=== PATIENT | female | born 1975 | race Caucasian/White ===

== ENCOUNTER 2016-06-23 22:49 | Emergency (ER) | payer MEDICARE, MEDICAID ==
[~2016-06-23] VITALS: Ht 160 cm; Wt 56.4 kg
[2016-06-23] MEDS: 0.9% Sodium Chloride 1,000 ML IV ONE (00:05)
[~2016-06-23 22:49] MED LIST: CRB200TCR PO; DIAZ5TAB PO; DIAZ5TAB3 PO; FENT1PAT11 TRANSDERM; HYDR2TAB27 PO; OXYC-474 PO; PROC-4 PO; ProAirHFA IH; SUCR1TAB; THYR97.5 PO
[2016-06-23 23:01] VITALS: PULSE 65; RESP 18; O2SAT 99
[2016-06-23 23:16] VITALS: BP 122/68
--- NOTE | 2016-06-23 23:28 | ED.REPORT ---
HPI-Abd Pain F Under 40 Date of Service Jun 23, 2016 ED Provider: Domingo Lara DO A 41 year old female with a history of abdominal issues including gastric ulcer disease, ruptured ulcer, small bowel obstructions, inoperable hernia, and GI bleed presents to the ED complaining of abdominal pain, nausea, and vomiting. The pt was bathing at approximately 16:00 today when the symptoms began. The pt suspects that the action of bathing triggered the flare because even small amounts of activity lead to breakthrough pain. Flares and breakthrough pain are a fairly regular occurrence for the pt. She takes pain medications daily at home and uses hydromorphone for breakthrough pain. However she states that this feels different than her usual symptoms. Per pt's significant other, the pt just began gaining weight less than a month ago. The pt had a bowel perforation in 01/2016 and an ulcer in 03/2016. Nursing Notes Stated Complaint: VOMITING Chief Complaint: Female Abdominal Pain Nursing Notes Reviewed: Yes Allergies: Coded Allergies: Haloperidol Lactate (Verified Allergy, Severe, 06/23/16) NSAIDS (Non-Steroidal Anti-Inflamma (Verified Allergy, Severe, 06/23/16) Tetanus Vaccines and Toxoid (Verified Allergy, Severe, epilepsy, 06/23/16) codeine (Verified Allergy, Severe, GIVEN HYDROMORPHONE XMANY, 06/23/16) divalproex sodium (Verified Allergy, Severe, 06/23/16) doxepin (Verified Allergy, Severe, Epilepsy, 06/23/16) haloperidol (Verified Allergy, Severe, 06/23/16) ketamine (Verified Allergy, Severe, Seizures, 06/23/16) phenobarbital (Verified Allergy, Severe, 06/23/16) phenytoin sodium (Verified Allergy, Severe, 06/23/16) Uncoded Allergies: PPI (Allergy, Severe, Shaky, seizures, 03/04/16) SSRI (Allergy, Intermediate, Aggrevates epilepsy, 03/04/16) Scheduled Carbamazepine-Expunged Drug, Do Not Renew! (Carbamazepine XR-Expunged Drug, Do Not Renew!) 200 Mg Tablet 400 MG PO BID DO NOT CRUSH OR CHEW Diazepam (Diazepam) 5 Mg Tablet 5 MG PO DIRECTED Diazepam-Expunged Drug, Do Not Renew! (Diazepam-Expunged Drug, Do Not Renew!) 5 Mg Tablet 5 MG PO TIDP Fentanyl 100 mcg/hr Patch (Fentanyl 100 mcg/hr Patch) 1 Each Patch.td72 25 MCG TRANSDERM Q3D Scheduled PRN Hydromorphone (Dilaudid) 2 Mg Tablet 4 MG PO QID PRN PRN Pain Oxycodone (Roxicodone) 5 Mg Tablet 10 MG PO Q4H PRN PRN For Pain Prochlorperazine Maleate (Compazine) 10 Mg Tablet 10 MG PO Q8 hours PRN PRN For Nausea Miscellaneous Medications Albuterol-Expunged Drug, Do Not Renew! (ProAir HFA-Expunged Drug, Do Not Renew! ) 200 Puff/8.5 Gm Hfa.aer.ad 8.5 GM IH Sucralfate (Sucralfate) 1 Gm Tablet Thyroid,Pork (Nature-Throid) 97.5 Mg Tablet 97.5 MG PO General Time Seen by MD: 23:28 Chief Complaint Abdominal pain Hx Obtained From: Patient, Spouse Arrived By: Walk-in Sudden in Onset?: No Onset Occurred: 5 - 8 hours ago Symptom Duration: Since onset Recent Healthcare: Recent doctor visit, Recent hospitalization Similar Sx Previous: Yes Past Medical History Past Medical History Notes: Followed by Dr. Willis @ [facility] Past Medical History seizure disorder hypothryoidism gastric ulcer disease multiple GI bleeds, history of ruptured ulcer small bowel obstructions chronic abdominal pain per significant other: inoperable hernia, remant stomach post bariatric surgery, dilated biliary system Past Surgical History - Emergency laparotomy on 02/09/16 - Kayli-en-Y jejunostomy gastric by-pass (Dr. Vazquez at [facility] in 2006) - hiatal hernia repair in 2006 - lysis of abdominal lesions in 2014 ( [facility]) Smoking History Unknown if Ever Smoker Social History Other Social History: Good social support, Local resident Ambulatory Status Independent Review of Systems Constitutional: Denies: Fever Respiratory: Denies: Non-productive cough Cardiovascular: Denies: Chest pain GI: Reports: Abdominal pain, Nausea, Vomiting Musculoskeletal: Denies: Back pain Complete sys rev & neg: except as marked. Physical Exam Initial Vital Signs Vital Signs (First) Date Time Temp Pulse Resp B/P Pulse Ox O2 Delivery O2 Flow Rate FiO2 06/23/16 23:01 37.1 65 18 99 Room Air 06/23/16 23:16 122/68 Initial VS: Reviewed General/Constitutional: Awake, Alert Behavior: Positive: Tearful mild distress due to pain Respiratory / Chest: Atraumatic, Breath sounds NL, Breath sounds = bilat, No respiratory distress Cardiovascular: Heart rate NL, Regular rhythm, Heart sounds NL Abdomen: Atraumatic, Soft epigastric tenderness Back: Atraumatic, Full range of motion Head / Eyes: Atraumatic, Normocephalic, PERRL, EOMI ENT: Atraumatic, Airway patent, Mucous membranes moist Skin: Atraumatic, Color NL, No rash, Warm, Dry Neurologic: Oriented X3, Speech NL, No motor deficits, No sensory deficits Neck: Atraumatic, Supple, Full range of motion Upper Extremity / MS: Atraumatic, Full range of motion Lower Extremity / Pelvis / MS: Atraumatic, Full range of motion, No edema Psychiatric: Affect NL, Mood NL Interpretation & Diagnostics Lab Results Interpretation Result Diagram: 06/23/16 2336 06/23/16 2336 Test 06/23/16 23:36 06/24/16 01:57 06/24/16 02:45 White Blood Count 9.4th/mm3 (3.8-10.1) Red Blood Count 4.17mil/mm3 (3.90-5.20) Hemoglobin 13.2g/dL (12.0-15.6) Hematocrit 37.0% (35.0-46.0) Mean Corpuscular Volume 88.7fL (81-100) Mean Corpuscular Hemoglobin 31.7pg (27.0-35.0) Mean Corpuscular Hemoglobin Concent 35.7% (32.0-37.0) Red Cell Distribution Width 12.8% (12.3-15.4) Platelet Count 335bil/L (150-400) Neutrophils (%) (Auto) 86.9% (40-74) Lymphocytes (%) (Auto) 7.4% (14-46) Monocytes (%) (Auto) 5.4% (4-12) Eosinophils (%) (Auto) 0% (0-5) Basophils (%) (Auto) 0.1% (0-3) Hold Purple Top Tube Received (Received) Prothrombin Time 11.0sec (8.1-12.5) Prothromb Time International Ratio 1.03ratio Hold Blue Top Tube Received (Received) Sodium Level 124mEq/L (134-144) Potassium Level 4.3mEq/L (3.5-5.2) Chloride Level 85mEq/L (97-108) Carbon Dioxide Level 25mmol/L (18-29) Blood Urea Nitrogen 13mg/dL (6-24) Creatinine 0.53mg/dL (0.57-1.00) Estimat Glomerular Filtration Rate 181mL/min (>59) Glucose Level 130mg/dL (60-99) Lactic Acid Level 2.0mmol/L (0.4-2.0) Calcium Level 9.3mg/dL (8.5-10.1) Magnesium Level 1.8mg/dL (1.6-2.6) Total Bilirubin 0.2mg/dL (0.0-1.2) Aspartate Amino Transf (AST/SGOT) 14U/L (0-50) Alanine Aminotransferase (ALT/SGPT) 7U/L (0-32) Alkaline Phosphatase 93U/L (25-150) Total Protein 7.1g/dL (6.4-8.4) Albumin 4.6g/dL (3.4-5.0) Lipase 19U/L (13-60) Hold Red Top Tube Received (Received) Hold [place] Top Tube Received (Received) Hold [place] Top Tube Received (Received) Carbamazepine (Tegretol) Level 9.1ug/mL (4.0-12.0) Urine Color Yellow (YELLOW) Urine Appearance Hazy (CLEAR,HAZY) Urine pH 7.5 (5.0-8.0) Urine Specific [place] 1.010 (1.003-1.035) Urine Protein Negativemg/dL (NEG,TRACE) Urine Glucose (UA) Negativemg/dL (NEGATIVE) Urine Ketones Negativemg/dL (NEGATIVE) Urine Occult Blood Moderate (NEGATIVE) Urine Nitrite Negative (NEGATIVE) Urine Bilirubin Negative (NEGATIVE) Urine Urobilinogen Normalmg/dL (NORMAL) Urine Leukocyte Esterase Negative (NEGATIVE) Urine RBC 3-10/hpf (0-2) Urine WBC 0-5/hpf (0-5) Urine Epithelial Cells Few/hpf (NONE-MOD) Urine Crystals None seen (NONE SEEN) Urine Bacteria Moderate/hpf (NONE-FEW) Urine Hyaline Casts None/lpf (NONE) Urine Granular Casts None seen (NONE SEEN) Urine Waxy Casts None seen (NONE SEEN) Urine Red Blood Cell Casts None seen (NONE SEEN) Urine White Blood Cell Casts None seen (NONE SEEN) Urine Mucus None seen (None Seen) Urine Trichomonas None seen (NONE SEEN) Urine Yeast None (NONE SEEN) Urinalysis Comment None Urine Culture Reflexed Indicated Troponin T 0.010ug/L (0.0-0.011) ECG Interpretation ECG Interpretation: normal sinus rhythm with a rate of [address] segment changes Time: 00:08 Interpreted by: ED physician CT Abd / Pelvis Interpretation CONCLUSION: Left colon is collapsed making it difficult to evaluate for wall thickening but I could not exclude the possibility of mild colitis. There is no evidence of obstruction. Patient had previous gastric bypass surgery. Dilated common bile duct. Interpretation / Wet Read by: Interpret - Radiologist Pulse Oximetry Interpretation Pulse Oximetry Interpretation: 99% on room air Pulse Oximetry: Pulse Ox normal Re-Eval/Medical Decision Source of Hx: Old records Re-Evaluation/Progress : Time of Eval: 02:48 Patient Status: Condition improved Re-Evaluation/Progress Note: Pt rechecked, who is resting comfortably with no further seizing. She is informed of her radiology results, diagnosis, and the plan for discharge pending reassuring lab results. The pt understands and agrees with the plan. All questions are addressed at this time. Counseled Regarding: Diagnosis, Lab results, Need for follow-up, When/why to return to ED Discharge & Departure Primary Impression: Abdominal pain Abdominal location: unspecified location Qualified Code: R10.9 - Unspecified abdominal pain Additional Impression: Seizure Disposition: Home Discharge Condition All VS Reviewed: Yes Condition: Stable Patient Instructions: Acute Abdominal Pain (ED), Clear Liquid Diet (ED) Additional Instructions: Your CT and labs were all reassuring. Maintain a clear liquid diet and advance as tolerated. Use your pain medications as prescribed. Your Tegretol level is therapeutic. Continue to take your routine dose of Tegretol. Do not drive or drink alcohol tonight or while under the influence of opiates. Follow up with your primary care physician for further evaluation. Return to the emergency department if you develop any new or worsening symptoms. Referrals: Con Hernandez MD (PCP) Scribe Attestation Portions of this note were transcribed by Seng Spears. I, Dr. Lara personally performed the history, physical exam and medical decision-making; I reviewed and confirmed the accuracy of the information in the transcribed note. Signed by: Joo Barnett, 06/24/2016 and 0005. copies to: Con Hernandez MD, Domingo Garces DO Jun 23, 2016 23:28 SENG SPEARS Jun 24, 2016 00:13
[2016-06-23 23:55] LABS: BASOPHILS % (AUTO) 0.1 % (0-3)
[2016-06-24 00:03] LABS: INR 1.03 ratio
[2016-06-24] MEDS: HYDROmorphone 0.5 mg/0.5 mL iSecure Syringe IVPUSH PRN ×7 (00:05→03:30)
[2016-06-24 00:07] LABS: Magnesium 1.8 mg/dL (1.6-2.6)
[2016-06-24] MEDS: 0.9% Sodium Chloride 1,000 ML IV ONE (00:25)
[2016-06-24] MEDS: Ondansetron 2 mg/mL 2 mL Inj IVPUSH PRN ×7 (00:25→03:30)
[2016-06-24 00:35] LABS: EOSINOPHILS % (AUTO) 0 % (0-5); MONOCYTES % (AUTO) 5.4 % (4-12); Mean Corpuscular Hemoglobin 31.7 pg (27.0-35.0); Mean Corpuscular Volume 88.7 fL (81-100); NEUTROPHILS % (AUTO) 86.9 % (40-74); Platelet Count 335 bil/L (150-400)
[2016-06-24] MEDS ORDERED: Iohexol 300 mg/mL 30 mL Inj PO ONE (01:10)
[2016-06-24 01:49] VITALS: BP 140/81; PULSE 76; RESP 18; O2SAT 100
[2016-06-24 02:09] LABS: APPEARANCE,URINE HAZY (CLEAR,HAZY); COLOR,URINE YELLOW (YELLOW); OCCULT BLOOD,URINE MODERATE (NEGATIVE); PH,URINE 7.5 (5.0-8.0); UROBILINOGEN,URINE NORMAL (NORMAL)
[2016-06-24] MEDS ORDERED: 0.9% Sodium Chloride 1,000 ML IV ONE (02:45)
[2016-06-24 03:46] VITALS: BP 138/80; PULSE 72; RESP 16; O2SAT 100
--- NOTE | 2016-06-24 08:28 | DRSVH ---
PROCEDURE: CT ABDOMEN AND PELVIS WITH CONTRAST ([id number]) INDICATIONS: abdominal pain, vomiting TECHNIQUE: After the administration of oral and intravenous contrast, 5 mm thick sections acquired from the diap hragms to the symphysis. 5 mm thick coronal and sagittal reformats were performed. For radiation do se reduction, the following was used: automated exposure control, adjustment of mA and/or kV accordi ng to patient size. COMPARISON: [facility], CT, CT ABD PELVIS W CON, 03/04/2016, 23:58. FINDINGS: Image quality: Excellent. ABDOMEN: Lung bases: There is minimal dependent atelectasis. Heart size is normal. A small hernia is present . Solid organs: There is hypoattenuation of the liver consistent with fatty infiltration. A small mary on of focal fatty infiltration is also demonstrated anteriorly in the left hepatic lobe. The spleen is normal in size. Gallbladder is within normal limits without calcified gallstones. There is intra -and extra hepatic biliary ductal dilatation, with the common bile duct measuring up to 12 mm. No di screte obstructing calcified stone visualized. The pancreatic duct is at the upper limits of normal measuring 2-3 mm. Pancreas enhances normally. There is thickening of the left adrenal gland without discrete nodule. The kidneys demonstrate no hydronephrosis. Peritoneum and bowel: There are postsurgical changes status post prior gastric bypass. There is mild segmental wall thickening of the proximal jejunal efferent loop and mild segmental dilatation measur ing approximately 2.2 cm without definite evidence of obstruction. Remainder of the small bowel demo nstrates normal wall thickness and caliber. There is segment of mild colonic wall thickening involvi ng the splenic flexure, and descending colon, and sigmoid colon, with evaluation limited due to nondi stention. No free fluid or air. There is mild nonspecific fat stranding the omental fat anteriorly which is likely reactive. Nodes and vessels: No retroperitoneal or mesenteric adenopathy. Aorta and inferior vena cava are no rmal in caliber. Miscellaneous: No ventral hernias. PELVIS: Genitourinary: Bladder wall thickness is normal. There is a small right ovarian cyst measuring up t o 1.8 cm. Miscellaneous: No inguinal hernias or adenopathy. Bones: No suspicious bony lesions. No vertebral body compression fractures. IMPRESSION: 1. Segmental mild wall thickening of the efferent jejunal loop in the left upper quadrant without de finite evidence of obstruction. Mild segmental wall thickening also demonstrated in the descending a nd sigmoid colon. Findings are suggestive of a probable infectious or inflammatory enterocolitis. 2. Hepatic steatosis. Dictated by: Cecilio Pearson M.D. on 06/24/2016 at 8:17 Approved by: Cecilio Pearson M.D. on 06/24/2016 at 8:26
== END 2016-06-24 03:47 | disposition home or self-care (01) ==
LOC: SED 22:49
DX: R10.13 Epigastric pain (principal); R56.9 Unspecified convulsions; E03.9 Hypothyroidism, unspecified; Z88.5 Allergy status to narcotic agent; Z88.7 Allergy status to serum and vaccine; Z88.8 Allergy status to other drugs, medicaments and biological substances
CPT/HCPCS: 36415; 74177; 80053; 80156; 81000; 83605; 83690; 83735; 84484; 85025; 85610; 87086; 93005; 96361; 96374; 96375; 96376; 99285; J1170; J2405; J3360; J7030; Q9967

== ENCOUNTER 2016-08-28 07:39 | Inpatient (IN) | payer MEDICARE, MEDICAID ==
[2016-08-28] VITALS (8 sets, daily range): BP systolic 101–147; BP diastolic 69–86; PULSE 66–85; RESP 5–16; O2SAT 96–98
[~2016-08-28] VITALS: Ht 160 cm; Wt 51.1 kg
--- NOTE | 2016-08-28 07:48 | ED.REPORT ---
HPI-Abd Pain F 40 and Over Date of Service Aug 28, 2016 ED Provider: Tomas Nascimento MD The pt is a 41 y/o female w/ a hx of dysphagia, gastric ulcer disease, multiple GI bleeds with perforated ulcer, small bowel obstructions, and endometriosis presenting to the ED due to left sided abd pain onset yesterday. She also reports nausea, but no vomiting and the abd pain is intermittent. She describes the abd pain as very strong, stabbing, localized to the left side and very similar to what she has had before. In the past, she has experienced extreme PO intolerance and anything she consumes causes nausea. The stomach pain usually triggers nausea and vomiting. She denies fever, diarrhea, dysuria, or changes in bowel habits. Her last dose of pain medication was 8 mg of Dilaudid at 0400 this morning and she hasn't used any nausea medication. There have been no changes in medication since January. She reports a very healthy diet with lots of hot soup after she had bariatric surgery. Nursing Notes Stated Complaint: ABD PAIN Chief Complaint: Female Abdominal Pain Nursing Notes Reviewed: Yes (Wix not reconciled) Allergies: Coded Allergies: Haloperidol Lactate (Verified Allergy, Severe, 06/23/16) NSAIDS (Non-Steroidal Anti-Inflamma (Verified Allergy, Severe, 06/23/16) Tetanus Vaccines and Toxoid (Verified Allergy, Severe, epilepsy, 06/23/16) codeine (Verified Allergy, Severe, GIVEN HYDROMORPHONE XMANY, 06/23/16) divalproex sodium (Verified Allergy, Severe, 06/23/16) doxepin (Verified Allergy, Severe, Epilepsy, 06/23/16) haloperidol (Verified Allergy, Severe, 06/23/16) ketamine (Verified Allergy, Severe, Seizures, 06/23/16) phenobarbital (Verified Allergy, Severe, 06/23/16) phenytoin sodium (Verified Allergy, Severe, 06/23/16) Uncoded Allergies: PPI (Allergy, Severe, Shaky, seizures, 03/04/16) SSRI (Allergy, Intermediate, Aggrevates epilepsy, 03/04/16) Scheduled Carbamazepine (Tegretol) 200 Mg Tablet 200 MG PO BID Carbamazepine (Tegretol) 200 Mg Tablet 400 MG PO BIDAC Carbamazepine-Expunged Drug, Do Not Renew! (Carbamazepine XR-Expunged Drug, Do Not Renew!) 200 Mg Tablet 400 MG PO BID DO NOT CRUSH OR CHEW Diazepam (Diazepam) 5 Mg Tablet 5 MG PO DIRECTED Diazepam-Expunged Drug, Do Not Renew! (Diazepam-Expunged Drug, Do Not Renew!) 5 Mg Tablet 5 MG PO TIDP Fentanyl 50 mcg/hr Patch (Fentanyl 50 mcg/hr Patch) 1 Each Patch.td72 1 PATCH TRANSDERM Q2DAY Scheduled PRN Hydromorphone (Dilaudid) 2 Mg Tablet 4 MG PO QID PRN PRN Pain Oxycodone (Roxicodone) 5 Mg Tablet 10 MG PO Q4H PRN PRN For Pain Prochlorperazine Maleate (Compazine) 10 Mg Tablet 10 MG PO Q8 hours PRN PRN For Nausea Miscellaneous Medications Sucralfate (Sucralfate) 1 Gm Tablet Thyroid,Pork (Nature-Throid) 97.5 Mg Tablet 97.5 MG PO General Time Seen by MD: 07:45 Chief Complaint Abdominal pain Hx Obtained From: Patient Arrived By: Walk-in Sudden in Onset?: Yes Onset Occurred: Yesterday Symptom Duration: Since onset Recent Healthcare: No recent doctor visit Similar Sx Previous: Yes Past Medical History Past Medical History Notes: Followed by Dr. Willis @ [facility] Past Medical History seizure disorder hypothryoidism gastric ulcer disease multiple GI bleeds, history of perforated ulcer 01/2016 small bowel obstructions chronic abdominal pain per significant other: inoperable hernia, remant stomach post bariatric surgery, dilated biliary system Past Surgical History - Emergency laparotomy on 02/09/16 - Kayli-en-Y jejunostomy gastric by-pass (Dr. Vazquez at [facility] in 2006) - hiatal hernia repair in 2006 - lysis of abdominal lesions in 2014 ( [facility]) Smoking History Unknown if Ever Smoker Social History Other Social History: Good social support, Local resident Ambulatory Status Independent Review of Systems Constitutional: Denies: Chills, Fever GI: Reports: Abdominal pain, Nausea, Denies: Constipation, Diarrhea, Vomiting Female: Denies: Dysuria Complete sys rev & neg: except as marked. Neurologic: Denies: Headache Physical Exam Vital Signs Vital Signs (First) Date Time Temp Pulse Resp B/P Pulse Ox O2 Delivery O2 Flow Rate FiO2 08/28/16 07:44 36.8 77 16 101/69 97 Room Air Initial VS: Reviewed, Vital signs normal General/Constitutional: Awake, Alert, No acute distress Appearance / Presentation: Positive: Frail Respiratory / Chest: Atraumatic, Breath sounds NL, Breath sounds = bilat, No respiratory distress, No rales, No rhonchi, No wheezing Tachypnic Cardiovascular: Heart rate NL, Regular rhythm, Heart sounds NL, No murmurs Abdomen: Soft, Non-tender Multiple abdominal scars Back: Atraumatic, Full range of motion Head / Eyes: Atraumatic, Normocephalic ENT: Atraumatic, Airway patent, Mucous membranes moist, Pharynx NL Skin: Atraumatic, Warm, Dry Neurologic: Oriented X3, Speech NL, No motor deficits Psychiatric: Not suicidal, Not homicidal Blunt affect Interpretation & Diagnostics Lab Results Interpretation Result Diagram: 08/28/16 0930 08/28/16 0930 Test 08/28/16 09:25 08/28/16 09:30 08/28/16 10:30 08/28/16 10:45 Human Chorionic Gonadotropin, Qual Negative (Negative) White Blood Count 7.0th/mm3 (3.8-10.1) Red Blood Count 3.67mil/mm3 (3.90-5.20) Hemoglobin 11.4g/dL (12.0-15.6) Hematocrit 31.6% (35.0-46.0) Mean Corpuscular Volume 86.1fL (81-100) Mean Corpuscular Hemoglobin 31.1pg (27.0-35.0) Mean Corpuscular Hemoglobin Concent 36.1% (32.0-37.0) Red Cell Distribution Width 14.4% (12.3-15.4) Platelet Count 325bil/L (150-400) Neutrophils (%) (Auto) 58.6% (40-74) Lymphocytes (%) (Auto) 30.8% (14-46) Monocytes (%) (Auto) 9.8% (4-12) Eosinophils (%) (Auto) 0.4% (0-5) Basophils (%) (Auto) 0.3% (0-3) Sodium Level 115mEq/L (134-144) Potassium Level 4.1mEq/L (3.5-5.2) Chloride Level 81mEq/L (97-108) Carbon Dioxide Level 24mmol/L (18-29) Blood Urea Nitrogen 6mg/dL (6-24) Creatinine 0.34mg/dL (0.57-1.00) Estimat Glomerular Filtration Rate 302mL/min (>59) Glucose Level 84mg/dL (60-99) Calcium Level 8.4mg/dL (8.5-10.1) Magnesium Level 1.7mg/dL (1.6-2.6) Total Bilirubin 0.3mg/dL (0.0-1.2) Aspartate Amino Transf (AST/SGOT) 13U/L (0-50) Alanine Aminotransferase (ALT/SGPT) 6U/L (0-32) Alkaline Phosphatase 86U/L (25-150) Total Protein 5.9g/dL (6.4-8.4) Albumin 4.0g/dL (3.4-5.0) Lipase 15U/L (13-60) Hold Hidalgo Top Tube Received (Received) Carbamazepine (Tegretol) Level 10.0ug/mL (4.0-12.0) Urine Color Yellow (YELLOW) Urine Appearance Clear (CLEAR,HAZY) Urine pH 7.5 (5.0-8.0) Urine Specific Danielson 1.009 (1.003-1.035) Urine Protein Negativemg/dL (NEG,TRACE) Urine Glucose (UA) Negativemg/dL (NEGATIVE) Urine Ketones Negativemg/dL (NEGATIVE) Urine Occult Blood Negative (NEGATIVE) Urine Nitrite Negative (NEGATIVE) Urine Bilirubin Negative (NEGATIVE) Urine Urobilinogen Normalmg/dL (NORMAL) Urine Leukocyte Esterase Negative (NEGATIVE) Urine RBC 0-2/hpf (0-2) Urine WBC 0-5/hpf (0-5) Urine Epithelial Cells Moderate/hpf (NONE-MOD) Urine Crystals None seen (NONE SEEN) Urine Bacteria Moderate/hpf (NONE-FEW) Urine Hyaline Casts None/lpf (NONE) Urine Granular Casts None seen (NONE SEEN) Urine Waxy Casts None seen (NONE SEEN) Urine Red Blood Cell Casts None seen (NONE SEEN) Urine White Blood Cell Casts None seen (NONE SEEN) Urine Mucus None seen (None Seen) Urine Trichomonas None seen (NONE SEEN) Urine Yeast None (NONE SEEN) Urinalysis Comment None Urine Culture Reflexed Indicated Lab Results Interpretation: CBC normal CMP severe hyponatremia negative Carbamazepine therapeutic Re-Eval/Medical Decision Med Decision/Clinical Course This is a 41-year-old female presents with exacerbation of chronic abdominal pain. The symptoms are the same that she has had with previous exacerbations, she is on large dose Dilaudid at home, is followed by pain specialist, says nausea home-with increasing pain and nausea the point that she came in. He has had no fevers, reports are no atypical features. Very tired. She has been drinking tea to stay hydrated, and apparently has been taking "cell salts". She also has a chronic seizure disorder for which she takes Tegretol, and states that she has small, frequent minor seizures, but is generally doing quite well from her standpoint from her seizures. On exam she is fatigued, but nontoxic. Abdomen soft and nontender. IV is placed and she was started on hydration, her CMP and nausea medicine. Labs are obtained are notable for severe hyponatremia. While in the department the patient according to the nurse reported she had one of her typical, brief seizures. Last 1-2 minutes, was not clearly tonic clonic,, and the patient recovered rapidly. She considers him her normal "breakthrough" seizures. However this presentation is, K by the severe hyponatremia, which itself may be exacerbated by the patient's Tegretol therapy, and further exacerbated by poor intake secondary to the abdominal pain. Not finding indication or need for emergent imaging. Abdominal pain. Patient reports is the same symptoms as previous exacerbations, she has had multiple imaging studies, including as recently the past few months, and the patient agrees. She has no red flags require emergent imaging at this time. However with the sodium being so low, with her being on Tegretol, and was having seizures the patient is being admitted for continued management. She is received 100 mL of 3% saline as a bolus here, and will be admitted for continued electorlyte management. During the receipt of the hypertonic saline bolus, the patient had a second brief seizure. I came immediately, the patient is postictal seizure activity had ended. Patient's normally on a combination of diazepam plus her carbamazepine, so received some lorazepam, and a second 100 mL bolus of 3% saline will be given as well. (Correction, Dr. Whitley from nephrology came and saw the patient, and recommended only the first bolus of 3% saline, so only a single bolus was given) Case has been discussed with admitting hospitalist, and the patient is being admitted for continued management. Source of Hx: Old records Re-Evaluation/Progress #1: Time of Eval: 10:44 Re-Evaluation/Progress Note: Pt rechecked. Discussed lab results of low sodium levels with patient. Informed pt of need for admission. Pt understands and agrees with plan for admission. All questions addressed. Re-Evaluation/Progress #2: Time of Eval: 11:15 Re-Evaluation/Progress Note: Pt was actively seizing Consultation : Referral / Consult Name: Rao Ozuna MD Consulted With: Hospitalist Call Returned at: 11:20 Note: Discussed plan for admit Differential Diagnosis: Positive: Acute abdominal pain (exacerbation of chronic pain), Negative: Abdominal aortic aneurysm, Acute coronary syndrome, Bladder outlet obstruct, Bowel obstruction, C. diff colitis, Cholangitis, Cholecystitis, Cholelithiasis, Diabetic ketoacidosis, Ectopic preg ruptured, Ectopic , Esophageal rupture, Gun shot wound abdomen, Intrauterine , Pancreatitis, Peritonitis, Urinary obstruction, Urinary retention, Urinary tract infection, Volvulus Counseled Regarding: Diagnosis, Lab results, Need for follow-up, Need for admission Discharge & Departure Primary Impression: Hyponatremia Additional Impressions: Abdominal pain Abdominal location: generalized Qualified Code: R10.84 - Generalized abdominal pain Seizure Seizure disorder Discharge Condition All VS Reviewed: Yes Condition: Stable Referrals: Tan Dang DO (PCP) Crit Care Except Billable Proc Time Spent: 30-74 minutes Services Performed: Patient management by me, Time spent at bedside, Reviewing test results, Discussing patient care, Documentation in record, Time with fam/ surrogate Scribe Attestation Portions of this note were transcribed by Reynold Guthrie and Emiliano Lyons. I, Dr. Nascimento personally performed the history, physical exam and medical decision- making; I reviewed and confirmed the accuracy of the information in the transcribed note. Signed by: Bess Márquez, 08/28/16 and 0808. ---- copies to: Tan Dang Matthew F MD Aug 28, 2016 07:48 Reynold Guthrie Aug 28, 2016 08:00 EMILIANO LYONS Aug 28, 2016 08:31
[2016-08-28] MEDS ORDERED: 0.9% Sodium Chloride 1,000 ML IV ONE (08:38)
[2016-08-28] MEDS ORDERED: Ondansetron 2 mg/mL 2 mL Inj IVPUSH ONE (08:40)
[2016-08-28] MEDS: HYDROmorphone 1 mg/mL Inj IVPUSH PRN ×2 (09:25→09:39)
[2016-08-28 10:03] LABS: BASOPHILS % (AUTO) 0.3 % (0-3); EOSINOPHILS % (AUTO) 0.4 % (0-5); MONOCYTES % (AUTO) 9.8 % (4-12); Mean Corpuscular Hemoglobin 31.1 pg (27.0-35.0); Mean Corpuscular Volume 86.1 fL (81-100); NEUTROPHILS % (AUTO) 58.6 % (40-74); Platelet Count 325 bil/L (150-400)
[2016-08-28 10:09] LABS: Magnesium 1.7 mg/dL (1.6-2.6)
[2016-08-28] MEDS ORDERED: 3% Sodium Chloride Inj 100 ML IV PRN (10:30)
[2016-08-28] MEDS ORDERED: Alum-Mag Hydrox-Simeth 30 mL Suspension PO PRN ×2 (11:35→13:10)
[2016-08-28] MEDS ORDERED: Ondansetron 2 mg/mL 2 mL Inj IVPUSH PRN ×2 (11:35→13:10)
[2016-08-28 11:39] LABS: APPEARANCE,URINE CLEAR (CLEAR,HAZY); COLOR,URINE YELLOW (YELLOW); OCCULT BLOOD,URINE NEGATIVE (NEGATIVE); PH,URINE 7.5 (5.0-8.0); UROBILINOGEN,URINE NORMAL (NORMAL)
[2016-08-28] MEDS ORDERED: CARB200T PO ×2 (11:39)
[2016-08-28] MEDS ORDERED: FENT1PAT9 TRANSDERM (11:39)
--- NOTE | 2016-08-28 13:00 | NUR ---
Admit to CCU from E.R. Witnessed seizures x2 in E.R.; Na level 115. Pt arrived nonverbal, Caregiver Kai ( for 27yrs) @ bedside. Able to maintain airway; resps 8-10, shallow. BP 144/87, SR 60s no ectopy. Admission process started; MD here. Awaiting med list.
[2016-08-28 13:06] LABS: OSMOLALITY, URINE 305 mOs/kH2O (250-1200)
[2016-08-28] MEDS ORDERED: Polyethylene Glycol (PEG) 17 Gm Powder PO PRN (13:10)
[2016-08-28] MEDS ORDERED: ProchlorPERazine 5 mg/mL 2 mL Inj IVPUSH PRN (13:50)
--- NOTE | 2016-08-28 14:11 | CONS ---
[address] [address] CONSULTATION REPORT PATIENT: BRAYDEN GONZALES : 1975 MR#: [id number] ADMIT: 08/28/2016 JOB ID: [id number] CORRECTED REPORT: DATE OF SERVICE: 08/28/2016 RENAL CONSULTATION: HISTORY: The patient is a 41-year-old, white female, who was admitted to [facility] for seizures and hyponatremia. Renal consultation is being sought for further evaluation of her hyponatremia. Much of the history has been obtained from patient's previous record and the patient's significant other. She has a history of seizure disorder and has had a history of low sodium levels in the past. All of this is following bariatric surgery a number of years ago. Since that time, she has had chronic pain with lysis of adhesions and subsequent small bowel perforation last year, requiring an operative procedure. She normally takes fentanyl patch and Dilaudid for breakthrough pain, along with Valium. I am somewhat unclear as to her seizure followup. Her significant other has given some rather confusing answers, but apparently she has been seen by Dr. Jorge, among other neurologists. She is maintained on carbamazepine and Valium as detailed above. She has a history of chronic abdominal pain, usually confined to the epigastrium which comes in various exacerbations. This is usually associated with nausea and vomiting. Apparently yesterday, she began to have another recurrence of this with nausea but no vomiting. She was able to tolerate a number of liquids, including unspecified amount of a watery soup and she takes considerable amounts of herbal tea, which are licorice based. She also, in the past, has eaten licorice considerably. There is a history of electrolyte disturbances. However, what these are, I am unsure of. Reviewing her previous records, I see that she tends to run a low-sodium of mid 120s up to low 130. I do not see any evidence of any hypertension or hyperkalemia in her most recent labs. This morning, when she awoke, she was having some more abdominal pain and was able to eat some clear liquid soup. The pain and nausea increased without any vomiting. In the emergency room, she apparently had a seizure which was treated with intravenous Valium, which terminated the seizure. Subsequent labs showed a sodium of 115. At time of my evaluation, the patient is somnolent and unarousable. Her significant other states that her seizures tend to be related to pain. PAST MEDICAL HISTORY: Significant for probable malabsorption syndrome from bypass surgery. Multiple upper GI bleeds with a perforated ulcer, small bowel obstruction, chronic pain syndrome, inoperable hernia, dilated biliary system, hypothyroidism, and chronic pain. PAST SURGICAL HISTORY: Significant for a Kayli-en-Y jejunostomy in 2006, a hiatal hernia repair, lysis of abdominal adhesions, emergency laparoscopy. ALLERGIES: She is allergic to a number of medications. Include: 1. HALDOL. 2. NSAIDS. 3. TETANUS. 4. CODEINE. 5. VALPROIC ACID. 6. DOXEPIN. 7. KETAMINE. 8. PHENOBARBITAL. 9. PHENYTOIN. 10. SSRIS. 11. PROTON PUMP INHIBITORS. CURRENT MEDICATIONS: Include Tegretol, diazepam, fentanyl, and Dilaudid. SOCIAL HISTORY: She denies use of alcohol, tobacco, or illicit drugs. REVIEW OF SYSTEMS: Otherwise, there are no recent illnesses including no recent cough, wheezing, fever, chills, diarrhea, or decreased appetite. PHYSICAL EXAMINATION: Revealed a well-developed, 41-year-old, white female, who was asleep at time of my evaluation. Even when stimulated, she was minimally responsive. Her blood pressure was 127/84, with a pulse rate of 85. HEENT examination was unremarkable. Mucous membranes were dry. Neck is supple without adenopathy, thyromegaly, or jugular venous distention. Lungs are clear to auscultation. Heart was regular and rhythmical with a soft systolic murmur. Abdomen soft, without any tenderness, rebound, guarding, or masses. Bowel sounds were diminished. Extremities did not show any evidence of any clubbing, cyanosis, or edema. Skin turgor was good, and there was no evidence of any rashes, dehydration, or fluid overload. LABORATORY EXAMINATION: On admission, her white count is 7.0, hemoglobin 11.4, hematocrit 31.6. Red cell indices, platelet count and differential were normal. Her sodium is 115, potassium 4.1, chloride of 81, bicarbonate 24. BUN and creatinine were 6 and 0.34, respectively. Her calcium is 8.4. Liver function studies were normal. Tegretol level was 10.0. Urinalysis showed a specific gravity 1.009. PH was 7.4. Test for protein, glucose, ketones, occult blood were all negative, as was her microscopic examination. IMPRESSION: 1. Hyponatremia secondary to syndrome of inappropriate antidiuretic hormone versus occult licorice ingestion. 2. Malabsorption syndrome. RECOMMENDATION: I would like to obtain urine osmolarity, urine sodium, serum osmolarity, urine drug screen, and thyroid function studies. I would also like to keep her on an 800 mL fluid restriction for now and follow her lab with sodiums every 2 hours. I do not want to over-correct more than 8 mEq in the next 24 hours Once again, I would like to thank you for allowing me to participate in the care of this most pleasant and interesting patient. I will be following her closely with you. Corrected by MITA 09/22/16 at 2:13pm DOS
--- NOTE | 2016-08-28 14:46 | PCM.HPMED ---
Subjective Date of Service Aug 28, 2016 Primary Provider: Admitting Physician: Rao Ozuna MD Primary Care Physician: Nopcp Attending Physician: Rao Ozuna MD Chief Complaint: Abdominal pain, seizures History of Present Illness: Patient is a 41-year-old female with a history of upper GI bleed, gastric bypass surgery, GI bleed secondary to ulcers, and epilepsy presenting with abdominal pain and seizures. The patient is accompanied by her significant other who is providing much of the history as the patient had just experienced a witnessed seizure and is confused and unable to provide much history. The patient's partner reports the patient has had longstanding GI issues with increased pain recently. There is reported nausea but no associated emesis with the abdominal pain. He reports that as a result of the pain, the patient has been consuming large quantities of black licorice over the past 7 to 10 days in addition to drinking licorice root tea to help with her GI issues. He states the uncontrolled pain leads the patient to having breakthrough seizures. He reports the patient has been tolerating PO intake during this time and had been taking all her medications as directed. He reports the patient has been stable on her current anticonvulsant regimen for many years. She has reportedly tried many regimens in the past with this regimen providing the best control. In the Emergency Department the patient was noted to have a seizure that lasted about 1 -2 minutes. The seizure was not tonic-clonic and the patient reportedly recovered rapidly. The patient's serum sodium was noted to be 115 in the ED and she was subsequently given 100mL 3% saline. During the administration of the 3% saline, the patient was reported to have another seizure episode. In the ED, vitals: temp 37.3, HR 68, RR 8 satting 98% on room air, BP 147/84 Review of Systems: A comprehensive review of systems was conducted with the patient and found to be negative except as above in the History of Present Illness. Allergies Coded Allergies: Haloperidol Lactate (Verified Allergy, Severe, 06/23/16) NSAIDS (Non-Steroidal Anti-Inflamma (Verified Allergy, Severe, 06/23/16) Tetanus Vaccines and Toxoid (Verified Allergy, Severe, epilepsy, 06/23/16) codeine (Verified Allergy, Severe, GIVEN HYDROMORPHONE XMANY, 06/23/16) divalproex sodium (Verified Allergy, Severe, 06/23/16) doxepin (Verified Allergy, Severe, Epilepsy, 06/23/16) haloperidol (Verified Allergy, Severe, 06/23/16) ketamine (Verified Allergy, Severe, Seizures, 06/23/16) phenobarbital (Verified Allergy, Severe, 06/23/16) phenytoin sodium (Verified Allergy, Severe, 06/23/16) Uncoded Allergies: PPI (Allergy, Severe, Shaky, seizures, 03/04/16) SSRI (Allergy, Intermediate, Aggrevates epilepsy, 03/04/16) Home Medications Carbamazepine 400mg BID at 03:00 and 15:00 Carbamazepine 200mg daily at 9:00 Diazepam 5mg TID at 03:00, 15:00 and 21:00 Nature-throid 97.5mg daily Sucralfate 1g QID at 06:00, 12:00, 18:00, 00:00 Zofran 4mg Q8 hours PRN Compazine 10mg Q8 hours PRN Fentanyl patch 50mcg Q48 hours Dilaudid 4-8mg PO Q8 hours PMH -Upper GI bleed in 2014 -Bowel obstruction -Epilepsy -Hypothyroidism -Nausea -Chronic Pain -History of hyponatremia -History of perforated viscus s/p closure of perforated francia limb of RYGB with omental patch . Surgical History -Laparoscopic Francia-en-Y bypass surgery in 2006 -Laparotomy for adhesiolysis 2012 -Ulcer cauterization in 2014 -Closure of perforated francia limb of RYGB in 01/2016 Family History Father of homicide Mother is alive with DM2 Sister with Crohn's disease Social History Hx Alcohol Use: No Hx Substance Use: Yes (THC) Hx Tobacco Use: No Smoking Status: Unknown if Ever Smoker Exam Vital Signs Vital Sign - Last Date Time Temp Pulse Resp B/P Pulse Ox O2 Delivery O2 Flow Rate FiO2 08/28/16 13:06 37.3 68 8 147/84 98 Room Air Exam General: Thin patient supine in bed, not interactive HEENT: Normocephalic, atraumatic. External ears without defect. Pupils equal, round, and reactive to light. Anicteric sclerae, moist conjunctivae, and no lid lag. Neck: Supple Cardiovascular: Regular rate and rhythm with no murmurs, rubs, or gallops appreciated Pulmonary: Clear to auscultation bilaterally with no crackles, wheezes, or rhonchi. Normal respiratory effort with no use of accessory muscles. Abdomen: Bowel tones present Extremities: No clubbing, cyanosis, edema, or lymphadenopathy appreciated. Skin: Normal temperature, turgor, and texture; no rash, ulcers, or subcutaneous nodules appreciated. Neurological: Cranial nerves grossly intact. Psychiatric: Confused. Not interactive. Lab and Diagnostics Result Diagram: 08/28/16 0930 08/28/16 3167 Assessment & Plan Patient is a 41-year-old female with a history of upper GI bleed, gastric bypass surgery, GI bleed secondary to ulcers, and epilepsy presenting with abdominal pain and seizures admitted for hyponatremia and seizure control. Hospital day #1. 1. Hyponatremia, present on admission, ongoing - Uncertain etiology; possibly secondary to Tegretol, licorice consumption or decreased intake from abdominal pain, - Patient received 100mL 3% saline in the ED - Fluid restriction of 800mL daily - Nephrology following. Recommendations per Nephrology appreciated - Correct no more than 8mEq in 24 hours to avoid central pontine demyelinolysis - Follow with BMP 2. Acute on chronic epilepsy. Present on admission. Ongoing - Patient has a witnessed seizures in the ED and one time following admission - Continue home anticonvulsant regimen: Tegretol 400mg PO bid at 0300 and 1500, Tegretol 200mg PO at 0900, Valium 5mg PO TID at 0300, 1500, and 2100 - Seizure precautions - Follow clinically 3. Chronic abdominal pain. Present on admission. Ongoing - Continue home pain regimen of Dilaudid 4-8mg Q8 hours PRN and Fentanyl patch 50mcg Q48 hours - Continue home dose sucralfate 1g QID - Bowel regimen 4. Nausea, chronic. Present on admission - Zofran PRN 5. Hypothyroidism, chronic. Present on admission -TSH level pending -Continue home Nature-Throid 97.5 mg PO daily Patient Status: Patient is admitted under inpatient status with expected length of stay greater than 2 midnights due to severity of presenting symptoms, risk of adverse event, and complexity of treatment plan. Pain Evaluation: Adequate Pain Control VTE Prophylaxis: Sub-Q Heparin (Unfractionated) Resuscitation Status: CPR: Attempt Resuscitation Attending Statement The patient was seen and examined together with Dr. Freitas on 08/28/2016 and I agree with the history, exam and plan as outlined in the note above. . Jai Freitas DO Aug 28, 2016 14:46 Rao Ozuna MD August 29, 2016 07:31
[2016-08-28] MEDS: carBAMazepine 200 mg Tablet PO SCH (15:14)
--- NOTE | 2016-08-28 15:48 | NUR ---
Evaluation completed. Please go to "Notes" then click on "Assessments and Notes" (bottom left corner of screen). Then select appropriate discipline tab on top of screen.
[2016-08-28] MEDS: Sucralfate 100 mg/mL 10 mL Suspension PO SCH ×2 (17:38→23:54)
[2016-08-28] MEDS: Heparin 5,000 Unit/mL Inj SUBQ SCH ×2 (17:41→23:55)
--- NOTE | 2016-08-28 18:36 | NUR ---
brief focal symptoms x3 in CCU; all less than 20 sec duration. Brief turning of head to left/bilat eyelid twitches; no drooling, airway intact. Able to speak clearly to her S.O., though not resonding to staff with either eye contact or verbal responses to questions. Noted also to have no incontinence; observed to be using TV remote appropriately and also up to BSC steady on feet immediately after focal symptoms. Na labs q2h; now 122. MD aware. Fluid restriction in place: 800cc/24hr, started @ 1400 today on arrival to ccu. Continue monitoring for safety priority. Seizure precautions in place.
[2016-08-29] MEDS: carBAMazepine 200 mg Tablet PO SCH (02:56)
[2016-08-29 03:02] VITALS: BP 117/69; PULSE 67; RESP 8; O2SAT 96
[2016-08-29 05:41] LABS: Magnesium 1.7 mg/dL (1.6-2.6); Phosphorus 4.1 mg/dL (2.5-4.9)
--- NOTE | 2016-08-29 05:43 | NUR ---
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 Patient sleeps on and off and is easily arousable. Patient is confused and repeats herself, states "I don't understand" frequently. SO at bedside assisting the patient. MD updated on sodium lab values.
[2016-08-29] MEDS: Sucralfate 100 mg/mL 10 mL Suspension PO SCH ×2 (06:03→11:58)
[2016-08-29] MEDS ORDERED: ZOF8 PO (06:31)
[2016-08-29] MEDS: Heparin 5,000 Unit/mL Inj SUBQ SCH (07:45)
[2016-08-29 08:00] VITALS: BP 130/84; PULSE 69; RESP 13; O2SAT 97
[2016-08-29] MEDS ORDERED: carBAMazepine 200 mg Tablet PO SCH (09:00)
[2016-08-29 10:05] VITALS: PULSE 69
[2016-08-29 12:23] VITALS: BP 121/78; PULSE 70; RESP 13
--- NOTE | 2016-08-29 13:27 | PCM.PNMED ---
Subjective Date of Service August 29, 2016 Subjective Patient is a 41-year-old female with a history of upper GI bleed secondary to ulcers, gastric bypass surgery,and epilepsy who presented with abdominal pain and seizures. Admitted for hyponatremia and acute on chronic epilepsy. Hospital day #2. Per nursing, no seizure activity overnight. This morning patient is found sleeping but easily aroused. She appears mildly confused and somewhat somnolent drifting off to sleep during conversations. She states that she would like to go home and reports ongoing abdominal pain but is otherwise without complaint. Exam Vital Signs Vital Sign - Last Date Time Temp Pulse Resp B/P Pulse Ox O2 Delivery O2 Flow Rate FiO2 08/29/16 03:02 36.9 67 8 117/69 96 Room Air Intake and Output 08/28/16 08/28/16 08/29/16 Cumulative From/Thru 15:00 23:00 07:00 08/28/16 07:44 - 08/29/16 06:00 Intake Total 1270 ml 300 ml 1570 ml Output Total 2700 ml 1200 ml 3900 ml Balance -1430 ml -900 ml -2330 ml Intake Oral 150 ml 300 ml 450 ml IV Total 1120 ml 1120 ml Output Urine Total 2700 ml 1200 ml 3900 ml # Voids 9 9 # Bowel Movements 0 0 Exam General: Thin patient supine in bed, minimally interactive HEENT: Normocephalic, atraumatic. External ears without defect. Pupils equal, round, and reactive to light. Anicteric sclerae, moist conjunctivae, and no lid lag. Neck: Supple Cardiovascular: Regular rate and rhythm with no murmurs, rubs, or gallops appreciated Pulmonary: Clear to auscultation bilaterally with no crackles, wheezes, or rhonchi. Normal respiratory effort with no use of accessory muscles. Abdomen: Bowel tones present Extremities: No clubbing, cyanosis, edema, or lymphadenopathy appreciated. Skin: Normal temperature, turgor, and texture; no rash, ulcers, or subcutaneous nodules appreciated. Neurological: Cranial nerves grossly intact. IVs and Medications Medications Reviewed: Medications were reviewed in detail Lab and Diagnostics Laboratory Tests Test 08/28/16 13:27 08/28/16 13:50 08/28/16 15:45 08/28/16 18:05 Sodium Level 119mEq/L (134-144) 122mEq/L (134-144) 118mEq/L (134-144) Potassium Level 4.2mEq/L (3.5-5.2) 4.2mEq/L (3.5-5.2) 4.1mEq/L (3.5-5.2) Chloride Level 82mEq/L (97-108) 83mEq/L (97-108) 83mEq/L (97-108) Carbon Dioxide Level 21mmol/L (18-29) 24mmol/L (18-29) 21mmol/L (18-29) Blood Urea Nitrogen 5mg/dL (6-24) 5mg/dL (6-24) 4mg/dL (6-24) Creatinine 0.41mg/dL (0.57-1.00) 0.46mg/dL (0.57-1.00) 0.39mg/dL (0.57-1.00) Estimat Glomerular Filtration Rate 244mL/min (>59) 213mL/min (>59) 258mL/min (>59) Glucose Level 95mg/dL (60-99) 108mg/dL (60-99) 104mg/dL (60-99) Calcium Level 8.7mg/dL (8.5-10.1) 8.4mg/dL (8.5-10.1) 8.7mg/dL (8.5-10.1) Osmolality 257 (275-300) Thyroid Stimulating Hormone (TSH) 2.390uIU/mL (0.450-4.500) Free Thyroxine 0.78ng/dL (0.82-1.77) Test 08/28/16 20:45 08/28/16 22:45 08/29/16 02:30 08/29/16 05:00 Sodium Level 116mEq/L (134-144) 120mEq/L (134-144) 122mEq/L (134-144) 123mEq/L (134-144) Potassium Level 4.5mEq/L (3.5-5.2) 4.3mEq/L (3.5-5.2) 4.4mEq/L (3.5-5.2) 4.4mEq/L (3.5-5.2) Chloride Level 81mEq/L (97-108) 83mEq/L (97-108) 83mEq/L (97-108) 84mEq/L (97-108) Carbon Dioxide Level 23mmol/L (18-29) 23mmol/L (18-29) 24mmol/L (18-29) 25mmol/L (18-29) Blood Urea Nitrogen 5mg/dL (6-24) 5mg/dL (6-24) 5mg/dL (6-24) 5mg/dL (6-24) Creatinine 0.34mg/dL (0.57-1.00) 0.36mg/dL (0.57-1.00) 0.39mg/dL (0.57-1.00) 0.43mg/dL (0.57-1.00) Estimat Glomerular Filtration Rate 302mL/min (>59) 283mL/min (>59) 258mL/min (>59) 231mL/min (>59) Glucose Level 99mg/dL (60-99) 108mg/dL (60-99) 100mg/dL (60-99) 103mg/dL (60-99) Calcium Level 8.3mg/dL (8.5-10.1) 8.1mg/dL (8.5-10.1) 8.4mg/dL (8.5-10.1) 8.5mg/dL (8.5-10.1) Phosphorus Level 4.1mg/dL (2.5-4.9) Magnesium Level 1.7mg/dL (1.6-2.6) Microbiology 08/28/16 Urine Culture - No growth to date Result Diagram: 08/28/16 0930 08/29/16 0500 Assessment & Plan 41 y/o female with a history of upper GI bleed secondary to ulcers, gastric bypass surgery, and epilepsy who presented with abdominal pain and seizures. Admitted for hyponatremia and seizure control. Hospital day #2. 1. Hyponatremia, present on admission, Improving. - Uncertain etiology; possibly secondary to SIADH, licorice consumption, Tegretol,or decreased intake from abdominal pain. - Nephrology is following. Recommendations per Nephrology appreciated - Continue fluid restriction - Follow BMP 2. Acute on chronic epilepsy. Present on admission. Ongoing - Patient had a witnessed seizures in the ED and one time following admission - Continue home anticonvulsant regimen: Tegretol 400mg PO bid at 0300 and 1500, Tegretol 200mg PO at 0900, Valium 5mg PO TID at 0300, 1500, and 2100 - Seizure precautions - Follow clinically 3. Chronic abdominal pain. Present on admission. Ongoing - Continue home pain regimen of Dilaudid 4-8mg Q8 hours PRN and Fentanyl patch 50mcg Q48 hours - Continue home dose sucralfate 1g QID - Bowel regimen 4. Nausea, chronic. Present on admission. Ongoing - Zofran PRN 5. Hypothyroidism, chronic. Present on admission. Ongoing -TSH 2.39 -Substitute [place] thyroid (90mg PO daily) for patient's home Nature-thyroid ( 97.5mg PO daily). Disposition: Discharge home with partner/caregiver in 1-2 days, pending further correction and monitoring of sodium. Pain Evaluation: Adequate Pain Control VTE Prophylaxis: Sub-Q Heparin (Unfractionated) Resuscitation Status: CPR: Attempt Resuscitation Attending Statement The patient was seen and examined together with Dr. Durbin on 08/29/2016 and I agree with the history, exam and plan as outlined in the note above. . Josefa Durbin DO August 29, 2016 09:31 Rao Ozuna MD August 29, 2016 16:35
--- NOTE | 2016-08-29 14:26 | NUR ---
Leaving AMA Pt states she wants to leave against medical advice. Pt A&O x3, signifcant other at bedside expressing that he would like her to stay until hyponatremia is resolved but she still would like to leave. Notified Dr Ozuna and discussed risks with patient. shes states she understands and signed AMA paperwork. PIV D/Cd intact, pt wheeled out in wheelchair by aide.
--- NOTE | 2016-08-29 14:27 | PCM.PNNEPH ---
Subjective Date of Service August 29, 2016 Subjective Sleeping, arousable, follow commands, answered questions appropriately. Wants to go home. Exam Vital Signs Vital Sign - Last Date Time Temp Pulse Resp B/P Pulse Ox O2 Delivery O2 Flow Rate FiO2 08/29/16 12:23 70 13 121/78 Room Air 08/29/16 08:00 37.2 97 Intake and Output 08/28/16 08/28/16 08/29/16 Cumulative From/Thru 15:00 23:00 07:00 08/28/16 07:44 - 08/29/16 06:00 Intake Total 1270 ml 300 ml 1570 ml Output Total 2700 ml 1200 ml 3900 ml Balance -1430 ml -900 ml -2330 ml Intake Oral 150 ml 300 ml 450 ml IV Total 1120 ml 1120 ml Output Urine Total 2700 ml 1200 ml 3900 ml # Voids 9 9 # Bowel Movements 0 0 Exam General: AAOX3, NAD. HEENT: Normocephalic, atraumatic. External ears without defect. Pupils equal, round, and reactive to light. Anicteric sclerae, moist conjunctivae, and no lid lag. Neck: Supple Cardiovascular: Regular rate and rhythm with no murmurs, rubs, or gallops. Pulmonary: Clear to auscultation bilaterally with no crackles, wheezes, or rhonchi. Normal respiratory effort with no use of accessory muscles. Abdomen: Bowel tones present, mild tenderness on RUQ. No HSM. Extremities: No clubbing, cyanosis, edema. Lab and Diagnostics Result Diagram: 08/28/16 0930 08/29/16 0500 Plan Impression 1. Chronic hyponatremia due to SIADH ( Carbamazepine, chronic pain and licorice tea consumption) Na dejuan from 115 to 123. 2. Uncontrolled epilepsy. 3. Hypothyroidism. 4. Peptic ulcers. Plan: Continue fluid restriction 800 ml per day. Add NaCl tab 1 g TID. Repeat sodium at 1600. Repeat BMP in am. KIMI Ozuna. Meenakshi Paez MD August 29, 2016 14:27
--- NOTE | 2016-08-30 20:50 | PCM.DC.MED ---
Discharge Summary Date of Service August 29, 2016 Dates of Hospitalization Date of Hospital Admission Aug 28, 2016 at 11:25 Date of Discharge: August 29, 2016 Providers: Admitting Physician: Rao Ozuna MD Primary Care Physician: Nopcp Attending Physician: Rao Ozuna MD Diagnosis at Time of Discharge Diagnosis at Time of Discharge 1. Hyponatremia. 2. Acute on chronic epilepsy. 3. Chronic abdominal pain and nausea. 4. Chronic hypothyroidism. Consultations Nephrology Brief History Per admission history and physical on 08/28/2016. Jai Freitas DO Patient is a 41-year-old female with a history of upper GI bleed, gastric bypass surgery, GI bleed secondary to ulcers, and epilepsy presenting with abdominal pain and seizures. The patient is accompanied by her significant other who is providing much of the history as the patient had just experienced a witnessed seizure and is confused and unable to provide much history. The patient's partner reports the patient has had longstanding GI issues with increased pain recently. There is reported nausea but no associated emesis with the abdominal pain. He reports that as a result of the pain, the patient has been consuming large quantities of black licorice over the past 7 to 10 days in addition to drinking licorice root tea to help with her GI issues. He states the uncontrolled pain leads the patient to having breakthrough seizures. He reports the patient has been tolerating PO intake during this time and had been taking all her medications as directed. He reports the patient has been stable on her current anticonvulsant regimen for many years. She has reportedly tried many regimens in the past with this regimen providing the best control. In the Emergency Department the patient was noted to have a seizure that lasted about 1 -2 minutes. The seizure was not tonic-clonic and the patient reportedly recovered rapidly. The patient's serum sodium was noted to be 115 in the ED and she was subsequently given 100mL 3% saline. During the administration of the 3% saline, the patient was reported to have another seizure episode. In the ED, vitals: temp 37.3, HR 68, RR 8 satting 98% on room air, BP 147/84 Hospital Course 41 y/o female with a history of upper GI bleed secondary to ulcers, gastric bypass surgery, and epilepsy who presented with abdominal pain and seizures. Admitted for hyponatremia and seizure control. Signed out AMA on hospital day # 2. 1. Severe Hyponatremia, acute. present on admission, Improved. - Uncertain etiology; possibly secondary to SIADH, licorice consumption, Tegretol,or decreased intake from abdominal pain. - Sodium 115 on admission. - Received 100mls of 3% saline in the ED, placed on fluid restriction, per Nephrology and admitted to the CCU. - BMP monitored q2hr, less than 8mEq correction in 24 hours - Discussed the need for additional monitoring, reviewed risks and potential complications with the patient and her caregiver. Several hours later patient signed out AMA. 2. Acute on chronic epilepsy. Present on admission. Ongoing - Patient had a witnessed seizures in the ED and one time following admission - Continued home anticonvulsant regimen: Tegretol 400mg PO bid at 0300 and 1500 , Tegretol 200mg PO at 0900, Valium 5mg PO TID at 0300, 1500, and 2100 - Patient was placed on seizure precautions and monitoring clinically. 3. Chronic abdominal pain. Present on admission. Ongoing - Continued home pain regimen of Dilaudid 4-8mg Q8 hours PRN and Fentanyl patch 50mcg Q48 hours - Continued home dose sucralfate 1g QID 4. Nausea, chronic. Present on admission. Ongoing - Zofran PRN 5. Hypothyroidism, chronic. Present on admission. Ongoing -TSH 2.39 -Substituted [place] thyroid (90mg PO daily) for patient's home Nature-thyroid ( 97.5mg PO daily). Exam Vital Signs (Last) Date Time Temp Pulse Resp B/P Pulse Ox O2 Delivery O2 Flow Rate FiO2 08/29/16 12:23 70 13 121/78 Room Air 08/29/16 08:00 37.2 97 Exam General: Thin patient supine in bed, minimally interactive HEENT: Normocephalic, atraumatic. External ears without defect. Pupils equal, round, and reactive to light. Anicteric sclerae, moist conjunctivae, and no lid lag. Neck: Supple Cardiovascular: Regular rate and rhythm with no murmurs, rubs, or gallops appreciated Pulmonary: Clear to auscultation bilaterally with no crackles, wheezes, or rhonchi. Normal respiratory effort with no use of accessory muscles. Abdomen: Bowel tones present Extremities: No clubbing, cyanosis, edema, or lymphadenopathy appreciated. Skin: Normal temperature, turgor, and texture; no rash, ulcers, or subcutaneous nodules appreciated. Neurological: Cranial nerves grossly intact. Test 08/28/16 09:25 08/28/16 09:30 08/28/16 10:30 08/28/16 10:45 Human Chorionic Gonadotropin, Qual Negative (Negative) White Blood Count 7.0th/mm3 (3.8-10.1) Red Blood Count 3.67mil/mm3 (3.90-5.20) Hemoglobin 11.4g/dL (12.0-15.6) Hematocrit 31.6% (35.0-46.0) Mean Corpuscular Volume 86.1fL (81-100) Mean Corpuscular Hemoglobin 31.1pg (27.0-35.0) Mean Corpuscular Hemoglobin Concent 36.1% (32.0-37.0) Red Cell Distribution Width 14.4% (12.3-15.4) Platelet Count 325bil/L (150-400) Neutrophils (%) (Auto) 58.6% (40-74) Lymphocytes (%) (Auto) 30.8% (14-46) Monocytes (%) (Auto) 9.8% (4-12) Eosinophils (%) (Auto) 0.4% (0-5) Basophils (%) (Auto) 0.3% (0-3) Total Bilirubin 0.3mg/dL (0.0-1.2) Aspartate Amino Transf (AST/SGOT) 13U/L (0-50) Alanine Aminotransferase (ALT/SGPT) 6U/L (0-32) Alkaline Phosphatase 86U/L (25-150) Total Protein 5.9g/dL (6.4-8.4) Albumin 4.0g/dL (3.4-5.0) Lipase 15U/L (13-60) Hold [place] Top Tube Received (Received) Carbamazepine (Tegretol) Level 10.0ug/mL (4.0-12.0) Urine Color Yellow (YELLOW) Urine Appearance Clear (CLEAR,HAZY) Urine pH 7.5 (5.0-8.0) Urine Specific [place] 1.009 (1.003-1.035) Urine Protein Negativemg/dL (NEG,TRACE) Urine Glucose (UA) Negativemg/dL (NEGATIVE) Urine Ketones Negativemg/dL (NEGATIVE) Urine Occult Blood Negative (NEGATIVE) Urine Nitrite Negative (NEGATIVE) Urine Bilirubin Negative (NEGATIVE) Urine Urobilinogen Normalmg/dL (NORMAL) Urine Leukocyte Esterase Negative (NEGATIVE) Urine RBC 0-2/hpf (0-2) Urine WBC 0-5/hpf (0-5) Urine Epithelial Cells Moderate/hpf (NONE-MOD) Urine Crystals None seen (NONE SEEN) Urine Bacteria Moderate/hpf (NONE-FEW) Urine Hyaline Casts None/lpf (NONE) Urine Granular Casts None seen (NONE SEEN) Urine Waxy Casts None seen (NONE SEEN) Urine Red Blood Cell Casts None seen (NONE SEEN) Urine White Blood Cell Casts None seen (NONE SEEN) Urine Mucus None seen (None Seen) Urine Trichomonas None seen (NONE SEEN) Urine Yeast None (NONE SEEN) Urinalysis Comment None Urine Culture Reflexed Indicated Urine Osmolality 305mOs/kH2O (250-1200) Urine Random Sodium 73mEq/L Urine Opiates Screen Positive Urine Methadone Screen Negative Urine Barbiturates Screen Negative Urine Amphetamines Screen Negative Urine Benzodiazepines Screen Positive Urine Cocaine Metabolite Screen Negative Urine Cannabinoids Screen Positive Test 08/28/16 13:50 08/29/16 05:00 Osmolality 257 (275-300) Thyroid Stimulating Hormone (TSH) 2.390uIU/mL (0.450-4.500) Free Thyroxine 0.78ng/dL (0.82-1.77) Sodium Level 123mEq/L (134-144) Potassium Level 4.4mEq/L (3.5-5.2) Chloride Level 84mEq/L (97-108) Carbon Dioxide Level 25mmol/L (18-29) Blood Urea Nitrogen 5mg/dL (6-24) Creatinine 0.43mg/dL (0.57-1.00) Estimat Glomerular Filtration Rate 231mL/min (>59) Glucose Level 103mg/dL (60-99) Calcium Level 8.5mg/dL (8.5-10.1) Phosphorus Level 4.1mg/dL (2.5-4.9) Magnesium Level 1.7mg/dL (1.6-2.6) Discharge Medications Discharge Medications Carbamazepine (Tegretol) 200 Mg Tablet 200 MG PO BID (Reported) Carbamazepine (Tegretol) 200 Mg Tablet 400 MG PO BIDAC (Reported) Diazepam (Diazepam) 5 Mg Tablet 5 MG PO DIRECTED Prescribed by: GREG BOWMAN DO Fentanyl 50 mcg/hr Patch (Fentanyl 50 mcg/hr Patch) 1 Each Patch.td72 1 PATCH TRANSDERM Q2DAY (Reported) As needed Hydromorphone (Dilaudid) 2 Mg Tablet 4 MG PO QID PRN PRN Pain (Reported) Ondansetron (Zofran) 8 Mg Tablet 8 MG PO q8 hours PRN PRN For Nausea (Reported) Prochlorperazine Maleate (Compazine) 10 Mg Tablet 10 MG PO Q8 hours PRN PRN For Nausea (Reported) Miscellaneous Medications Thyroid,Pork (Nature-Throid) 97.5 Mg Tablet 97.5 MG PO (Reported) Followup Plan Disposition: Patient signed out AMA. Attending Statement The patient was seen and examined together with Dr. Durbin on 08/29/2016 and I agree with the history, exam and plan as outlined in the note above. . Josefa Durbin DO August 29, 2016 15:25 Rao Ozuna MD September 05, 2016 08:33
== END 2016-08-29 13:57 | disposition left against medical advice (07) | DRG 644 ==
LOC: SED 07:39 → CCU 11:25 → PCC 08-29 10:02
PROVIDERS: ADMIT Internal Medicine; ATTEND Internal Medicine
DX: E22.2 Syndrome of inappropriate secretion of antidiuretic hormone (principal); K90.9 Intestinal malabsorption, unspecified; G40.909 Epilepsy, unspecified, not intractable, without status epilepticus; E03.9 Hypothyroidism, unspecified; Z98.84 Bariatric surgery status; G89.29 Other chronic pain

== ENCOUNTER 2016-11-01 04:45 | Emergency (ER) | payer MEDICARE, MEDICAID ==
[~2016-11-01] VITALS: Ht 162.6 cm; Wt 53.6 kg
[~2016-11-01 04:45] MED LIST changes: +CARB200T PO; -CRB200TCR PO; -DIAZ5TAB PO; -FENT1PAT11 TRANSDERM; +FENT1PAT9 TRANSDERM; -OXYC-474 PO; -ProAirHFA IH; -SUCR1TAB; +ZOF8 PO
[2016-11-01 04:53] VITALS: BP 126/87; PULSE 73; RESP 22; O2SAT 100
--- NOTE | 2016-11-01 05:17 | ED.REPORT ---
HPI-Abd Pain F 40 and Over Date of Service Nov 01, 2016 ED Provider: Denis Xie MD Pt is a 41 year old female with a history of abdominal issues including gastric ulcer disease, ruptured ulcer, small bowel obstructions, inoperable hernia, and GI bleed who presents to the ED complaining of worsening abdominal pain. She c/ o associated nausea. She denies vomiting, diarrhea, and constipation. Pt denies a history of cholecystectomy. The pt reports that her pain has not been relieved with her home pain regimen. Nursing Notes Stated Complaint: ABDOMINAL PAIN Chief Complaint: Female Abdominal Pain Nursing Notes Reviewed: Yes Allergies: Coded Allergies: Haloperidol Lactate (Verified Allergy, Severe, 11/01/16) NSAIDS (Non-Steroidal Anti-Inflamma (Verified Allergy, Severe, 11/01/16) Tetanus Vaccines and Toxoid (Verified Allergy, Severe, epilepsy, 11/01/16) codeine (Verified Allergy, Severe, GIVEN HYDROMORPHONE XMANY, 11/01/16) divalproex sodium (Verified Allergy, Severe, 11/01/16) doxepin (Verified Allergy, Severe, Epilepsy, 11/01/16) haloperidol (Verified Allergy, Severe, 11/01/16) ketamine (Verified Allergy, Severe, Seizures, 11/01/16) phenobarbital (Verified Allergy, Severe, 11/01/16) phenytoin sodium (Verified Allergy, Severe, 11/01/16) Proton Pump Inhibitors (Unverified Allergy, Unknown, 11/01/16) Uncoded Allergies: PPI (Allergy, Severe, Shaky, seizures, 03/04/16) SSRI (Allergy, Intermediate, Aggrevates epilepsy, 03/04/16) Scheduled Carbamazepine (Tegretol) 200 Mg Tablet 200 MG PO BID Carbamazepine (Tegretol) 200 Mg Tablet 400 MG PO BIDAC Diazepam (Diazepam) 5 Mg Tablet 5 MG PO DIRECTED Fentanyl 50 mcg/hr Patch (Fentanyl 50 mcg/hr Patch) 1 Each Patch.td72 1 PATCH TRANSDERM Q2DAY Scheduled PRN Hydromorphone (Dilaudid) 2 Mg Tablet 4 MG PO QID PRN PRN Pain Ondansetron (Zofran) 8 Mg Tablet 8 MG PO q8 hours PRN PRN For Nausea Prochlorperazine Maleate (Compazine) 10 Mg Tablet 10 MG PO Q8 hours PRN PRN For Nausea Miscellaneous Medications Thyroid,Pork (Nature-Throid) 97.5 Mg Tablet 97.5 MG PO General Time Seen by MD: 05:11 Chief Complaint Abdominal pain Hx Obtained From: Patient Arrived By: Walk-in Sudden in Onset?: No Onset Occurred: Yesterday Symptom Duration: Since onset Location: : Diffuse Quality: Painful Severity: Current: Moderate Severity: Maximum: Moderate Recent Healthcare: No recent doctor visit Similar Sx Previous: Yes Past Medical History Past Medical History Notes: Followed by Dr. Willis @ [facility] Past Medical History seizure disorder hypothryoidism Hypoatremia gastric ulcer disease multiple GI bleeds, history of perforated ulcer 01/2016 small bowel obstructions chronic abdominal pain per significant other: inoperable hernia, remant stomach post bariatric surgery, dilated biliary system Epilepsy - intractable seizures Past Surgical History - Emergency laparotomy on 02/09/16 - Kayli-en-Y jejunostomy gastric by-pass (Dr. Vazquez at [facility] in 2006) - hiatal hernia repair in 2006 - lysis of abdominal lesions in 2014 ( [facility]) Smoking History Former Smoker (2003) Social History Alcohol Use: Denies alcohol use Drug Use: Denies drug use Other Social History: Good social support, Local resident Ambulatory Status Independent Review of Systems GI: Reports: Abdominal pain, Nausea, Denies: Constipation, Diarrhea, Vomiting Complete sys rev & neg: except as marked. Physical Exam Vital Signs Vital Signs (First) Date Time Temp Pulse Resp B/P Pulse Ox O2 Delivery O2 Flow Rate FiO2 11/01/16 04:53 36.8 73 22 126/87 100 Room Air Initial VS: Reviewed Head / Eyes: Atraumatic, Normocephalic Neck: Supple, Full range of motion Extremities: Vascular intact, Neuro intact Neurologic: Alert, Oriented, Nonfocal Psychiatric: Mood/affect normal, Behavior normal General/Constitutional: Awake, Alert, Well hydrated, Cooperative, Not toxic appearing Respiratory / Chest: Atraumatic, Breath sounds NL, Breath sounds = bilat Cardiovascular: Heart rate NL, Regular rhythm, Heart sounds NL Abdomen: Atraumatic, Soft Severely tender throughout most of abdomen; more so in upper quadrants Back: Atraumatic, Full range of motion Skin: Atraumatic, No rash, Warm, Dry, Intact Interpretation & Diagnostics Lab Results Interpretation Result Diagram: 11/01/16 0615 11/01/16 0615 Test 11/01/16 06:15 11/01/16 07:20 11/01/16 07:56 White Blood Count 4.5th/mm3 (3.8-10.1) Red Blood Count 3.35mil/mm3 (3.90-5.20) Hemoglobin 10.4g/dL (12.0-15.6) Hematocrit 32.0% (35.0-46.0) Mean Corpuscular Volume 95.5fL (81-100) Mean Corpuscular Hemoglobin 31.0pg (27.0-35.0) Mean Corpuscular Hemoglobin Concent 32.5% (32.0-37.0) Red Cell Distribution Width 14.0% (12.3-15.4) Platelet Count 329bil/L (150-400) Neutrophils (%) (Auto) 53.8% (40-74) Lymphocytes (%) (Auto) 34.5% (14-46) Monocytes (%) (Auto) 10.7% (4-12) Eosinophils (%) (Auto) 0.4% (0-5) Basophils (%) (Auto) 0.4% (0-3) Sodium Level 139mEq/L (134-144) Potassium Level 3.9mEq/L (3.5-5.2) Chloride Level 103mEq/L (97-108) Carbon Dioxide Level 24mmol/L (18-29) Blood Urea Nitrogen 9mg/dL (6-24) Creatinine 0.37mg/dL (0.57-1.00) Estimat Glomerular Filtration Rate 274mL/min (>59) Glucose Level 94mg/dL (60-99) Calcium Level 8.9mg/dL (8.5-10.1) Magnesium Level 1.9mg/dL (1.6-2.6) Total Bilirubin 0.2mg/dL (0.0-1.2) Aspartate Amino Transf (AST/SGOT) 13U/L (0-50) Alanine Aminotransferase (ALT/SGPT) 8U/L (0-32) Alkaline Phosphatase 83U/L (25-150) Total Protein 6.0g/dL (6.4-8.4) Albumin 3.7g/dL (3.4-5.0) Lipase 17U/L (13-60) Lactic Acid Level 0.7mmol/L (0.4-2.0) Urine Color Yellow (YELLOW) Urine Appearance Hazy (CLEAR,HAZY) Urine pH 6.0 (5.0-8.0) Urine Specific [place] 1.014 (1.003-1.035) Urine Protein Negativemg/dL (NEG,TRACE) Urine Glucose (UA) Negativemg/dL (NEGATIVE) Urine Ketones Negativemg/dL (NEGATIVE) Urine Occult Blood Negative (NEGATIVE) Urine Nitrite Negative (NEGATIVE) Urine Bilirubin Negative (NEGATIVE) Urine Urobilinogen Normalmg/dL (NORMAL) Urine Leukocyte Esterase Trace (NEGATIVE) Urine RBC 0-2/hpf (0-2) Urine WBC 6-10/hpf (0-5) Urine Epithelial Cells Many/hpf (NONE-MOD) Urine Crystals None seen (NONE SEEN) Urine Bacteria Many/hpf (NONE-FEW) Urine Hyaline Casts None/lpf (NONE) Urine Granular Casts None seen (NONE SEEN) Urine Waxy Casts None seen (NONE SEEN) Urine Red Blood Cell Casts None seen (NONE SEEN) Urine White Blood Cell Casts None seen (NONE SEEN) Urine Mucus None seen (None Seen) Urine Trichomonas None seen (NONE SEEN) Urine Yeast None (NONE SEEN) Urinalysis Comment None Urine Culture Reflexed Indicated Re-Eval/Medical Decision Med Decision/Clinical Course Dr. Xie: This patient presented with abdominal pain and workup was initiated by me. Her care was turned over at change of shift to Dr. Tomas Nascimento. Addendum by Dr. Nascimento: This is a patient who is turned over to me at change of shift by Dr. Xie. This 41-year-old female presents complaining of increasing abdominal pain since yesterday. She has chronic abdominal pain, she did suffer perforated viscus in January 2016, she is followed by pain specialist and GI and is on high-dose opiates including a fentanyl patch and oral Dilaudid, and she is recently admitted in August for severe hyponatremia. She has chronic seizures, reports they have been doing well. This is similar pain which she has had before severe flares, but she became increasingly concerned that she might be having a complication. She said no fever, still level bit of nausea but no vomiting. The pain radiates slightly up into the epigastrium. There has been no GI blood loss, no diarrhea, no black or tarry stools, no dysuria no additional components. The patient has normal vitals, is on the cachectic side, but is nontoxic. Abdomen is soft without millie signs of peritonitis on my exam. Laboratory studies were normal today. was negative. Blood work was normal no leukocytosis, no markers of a dangerous process identified a laboratory evaluation. Today her sodium is normal. CT abdomen and pelvis was obtained with oral contrast, but is likewise negative with no overt pathology identified. The patient did receive some titrated medications. She is still having pain-but she has chronic pain. Her main concern was that there is a new complication, or acute process-knowing that that is not K she is comfortable with discharge to home-and will follow up with her pain specialist, riding silks custodian, and neurologist. I did offer the patient a sub-dissociative dose of ketamine for additional symptom relief, the patient alleges that she had a terrible reaction to the disassociative effects of ketamine with an attempted some disassociative dose up at [facility] just before she underwent a lysis of adhesions and would like to avoid this medication. Routine and return precautions reviewed with both the patient and her partner. The patient is discharged in stable condition, clinically well-appearing. Source of Hx: Old records Differential Diagnosis: Positive: Acute abdominal pain (acute exacerbation of chronic), Negative: Appendicitis, Bowel obstruction, Ectopic preg ruptured, Ectopic , Esophageal rupture, Gun shot wound abdomen, Intrauterine , Ischemic bowel, Pancreatitis, Peritonitis, Pyelonephritis, Stab wound abdomen, Urinary tract infection Counseled Regarding: Diagnosis, Lab results Discharge & Departure Shift Change Sign-Out Patient Care Transferred: Yes Discussed Complaint(s): Yes Laboratory Evaluation: Ordered, not yet done Imaging Studies: Ordered, not yet done Primary Impression: Abdominal pain Abdominal location: generalized Qualified Code: R10.84 - Generalized abdominal pain Discharge Condition All VS Reviewed: Yes Condition: Stable Referrals: [facility] Care Transferred to: Dr. Nascimento Care Transferred at: 06:00 Joo Attestation Portions of this note were transcribed by Keren Rivera. I, Dr. Xie personally performed the history, physical exam and medical decision-making; I reviewed and confirmed the accuracy of the information in the transcribed note. Signed by: Joo Granger, 11/01/16 and 05:58. copies to: [facility] Denis Xie MD Nov 01, 2016 05:17 Keren Garvey Nov 01, 2016 05:25 Tomas Nascimento MD Nov 01, 2016 10:48
[2016-11-01] MEDS ORDERED: 0.9% Sodium Chloride 1,000 ML IV ONE (05:21)
[2016-11-01] MEDS ORDERED: Iohexol 300 mg/mL 30 mL Inj PO ONE (05:25)
[2016-11-01] MEDS: Ondansetron 2 mg/mL 2 mL Inj IVPUSH PRN ×2 (06:21→07:22)
[2016-11-01] MEDS: HYDROmorphone 1 mg/mL Inj IVPUSH PRN ×5 (06:21→09:14)
[2016-11-01 06:24] LABS: BASOPHILS % (AUTO) 0.4 % (0-3); EOSINOPHILS % (AUTO) 0.4 % (0-5); MONOCYTES % (AUTO) 10.7 % (4-12); Mean Corpuscular Volume 95.5 fL (81-100); NEUTROPHILS % (AUTO) 53.8 % (40-74); Platelet Count 329 bil/L (150-400)
[2016-11-01 06:46] LABS: Magnesium 1.9 mg/dL (1.6-2.6)
[2016-11-01 08:19] LABS: APPEARANCE,URINE HAZY (CLEAR,HAZY); COLOR,URINE YELLOW (YELLOW); OCCULT BLOOD,URINE NEGATIVE (NEGATIVE); UROBILINOGEN,URINE NORMAL (NORMAL)
--- NOTE | 2016-11-01 08:49 | DRSVH ---
PROCEDURE: CT ABDOMEN AND PELVIS WITH CONTRAST ([id number]) INDICATIONS: abd pain TECHNIQUE: After the administration of oral and intravenous contrast, 5 mm thick sections acquired from the diap hragms to the symphysis. 5 mm thick coronal and sagittal reformats were performed. For radiation do se reduction, the following was used: automated exposure control, adjustment of mA and/or kV accordi ng to patient size. COMPARISON: [facility], CT, CT ABD PELVIS W CON, 06/24/2016, 1:03. FINDINGS: Image quality: Excellent. ABDOMEN: Lung bases: Lung bases are clear. Heart size is normal. Solid organs: Mild progression of intrahepatic biliary ductal dilatation greatest in the left lobe of the liver. Stable extrahepatic biliary dilatation a 1.3 CM with soft tissue prominence near the duod enum poorly seen the gallbladder itself is radiographically normal the pancreas, spleen, adrenal glan ds and kidneys are normal.. Peritoneum and bowel: Previous gastric bypass. No obstruction or perforation. Appendix not identified . There are no secondary signs of appendicitis.. Nodes and vessels: No retroperitoneal or mesenteric adenopathy. Aorta and inferior vena cava are no rmal in caliber. Miscellaneous: No ventral hernias. PELVIS: Genitourinary: Bladder wall thickness is normal. Miscellaneous: No inguinal hernias or adenopathy. Bones: No suspicious bony lesions. No vertebral body compression fractures. IMPRESSION: 1. Intra-and extrahepatic biliary ductal dilatation mildly progressed since the previous study. 2. Previous gastric bypass. 3. Oral contrast present in the colon effectively excluding physiologic obstruction. Dictated by: Carlton Benavides M.D. on 11/01/2016 at 8:32 Approved by: Carlton Benavides M.D. on 11/01/2016 at 8:42
[2016-11-01 09:15] VITALS: BP 110/65; PULSE 59; RESP 16; O2SAT 98
[2016-11-01] MEDS ORDERED: HYDROmorphone 1 mg/mL Inj IVPUSH ONE (10:40)
[2016-11-01 10:49] VITALS: BP 114/67; PULSE 67; RESP 16; O2SAT 98
== END 2016-11-01 10:50 | disposition home or self-care (01) ==
LOC: SED 04:45
DX: R10.84 Generalized abdominal pain (principal); E03.9 Hypothyroidism, unspecified; G89.29 Other chronic pain; Z87.891 Personal history of nicotine dependence; Z88.5 Allergy status to narcotic agent; Z88.6 Allergy status to analgesic agent; Z88.8 Allergy status to other drugs, medicaments and biological substances
CPT/HCPCS: 36415; 74177; 80053; 81000; 81025; 83605; 83690; 83735; 85025; 87086; 87088; 96361; 96374; 96375; 96376; 99285; J1170; J2405; J7030; Q9967